=== PATIENT | female | born 1990 | race Caucasian/White ===

== ENCOUNTER 2019-03-25 09:19 | Emergency (ER) | payer MEDICAID, SELFPAY ==
[2019-03-25 09:32] VITALS: BP 98/70; PULSE 82; RESP 16; TEMP 36.4; O2SAT 99
--- NOTE | 2019-03-25 10:12 | ED.GENADULT ---
HPI - General Adult General Chief complaint: Urogenital-Female Stated complaint: Genital Itching Time Seen by Provider: 03/25/19 10:12 Source: patient and RN notes reviewed Mode of arrival: ambulatory Limitations: no limitations History of Present Illness HPI narrative: 29-year-old female presents with complaints of genital and rectal itching and burning sensation rash for greater than 2.5 months. Clobetasol propionate and Nystatin-Triamcinolone creams without relief. Denies new changes in personal hygiene products or laundry detergent. No new foods or medications. No swelling, bleeding, or drainage. No significant pelvic pain. No vaginal discharge.? No concerns for STDs. Exacerbating factors urinating.? Denies hematuria or vaginal bleeding. No flank pain. Denies nausea, vomiting, and abdominal pain. Denies fever, chills, headaches, weakness, fatigue, myalgia, facial swelling, or tongue swelling. Denies chest pain or dyspnea. Tolerating po intake well. Denies being , LMP 02/20/19. Some parts of this dictation were generated by voice recognition software and may contain typographical and/or grammatical inaccuracies. Related Data Home Medications Medication Instructions Recorded Confirmed clobetasol 1 applic TOPICAL HS 03/25/19 03/25/19 Allergies Allergy/AdvReac Type Severity Reaction Status Date / Time acetaminophen Allergy Mild RASH Verified 03/25/19 09:53 Review of Systems Review of Systems: Narrative: CONSTITUTIONAL: Denies fever, chills, sweats. EYES: Denies visual changes, redness, discharge. ENT: Denies rhinorrhea, congestion, sore throat, otalgia. CARDIOVASCULAR: Denies chest pain, palpitations, edema. RESPIRATORY: Denies dyspnea, wheezing, cough. GASTROINTESTINAL: Denies abdominal pain, nausea, vomiting, diarrhea. GENITOURINARY: Denies dysuria, hematuria, abnormal discharge SKIN: Complains of itching and burning sensation rash to genital and rectal area. Denies drainage. MUSCULOSKELETAL: Denies acute back pain, joint pain, or myalgia. NEUROLOGIC: Denies numbness or focal weakness. PSYCHIATRIC: Denies anxiety or depression. All other systems reviewed & are unremarkable except as noted in HPI and below. [facility] Past Medical History Medical History (Updated 03/26/19 @ 00:00 by Background Daemon) Anemia Surgical History Surgical History (Updated 03/25/19 @ 10:25 by BOONE Gregorio) No significant past surgical history Family History Family History (Updated 03/25/19 @ 10:25 by BOONE Gregorio) Father Hypertension Social History Social History (Updated 03/25/19 @ 10:26 by BOONE Gregorio) Smoking status: Current every day smoker Second hand tobacco smoke exposure: Yes Alcohol intake: never Substance use: never Living arrangements: with family Gender identity (if verbalized by the patient): Female Comments At time of signature, agree with nurse past medical, surgical, social, and family history. There is no relevant family history pertinent to the presenting complaint. Exam Narrative: Exam Narrative: GENERAL: This is a well-nourished, well-developed patient, in no apparent distress. Talking in full sentences without deficit and ambulate with steady gait without dyspnea. HEAD: normocephalic, atraumatic. EYES: PERRL. Sclera clear/white. Vision is grossly intact. THROAT: Mucous membranes moist, posterior pharynx clear. NECK: Neck supple, non-tender without lymphadenopathy, masses or thyromegaly. CARDIOVASCULAR: Regular rate and rhythm without murmurs, gallops, or rubs. RESPIRATORY: Clear to auscultation. Breath sounds equal bilaterally. No wheezes, rales, or rhonchi. GASTROINTESTINAL: Abdomen soft, non-tender, nondistended. Bowel sounds are active. No hepato-splenomegaly, or palpable masses. No guarding. SKIN: warm, red patch along the perineum area including the groin and butt with a well-marked border and clear central area. No tenderness.
== END 2019-03-25 10:43 | disposition home or self-care (01) ==
PROVIDERS: Emergency Provider Nurse Practitioner Family
DX: B35.6 Tinea cruris (principal); F17.200 Nicotine dependence, unspecified, uncomplicated
CPT/HCPCS: 99213; G0463

== ENCOUNTER 2019-07-19 16:59 | Emergency (ER) | payer OTHER, SELFPAY ==
[2019-07-19 17:19] VITALS: BP 106/74; PULSE 82; RESP 16; TEMP 36.9; O2SAT 99
--- NOTE | 2019-07-19 17:19 | ED.DENTAL ---
HPI - Dental/Oral General Chief complaint: Dental/Oral Stated complaint: Blisters in mouth Time Seen by Provider: 07/19/19 17:19 Source: patient and RN notes reviewed History of Present Illness HPI Narrative: Patient is a 29-year-old female that presents the urgent care with complaints of burning blisters/mouth sores. Patient states is been ongoing since February and she is seeing her PCP who treated her for herpetic lesions with acyclovir. Patient states that she took the medication 3 times a day for 1 week without any improvement and therefore stopped the medication. Patient states that her PCP did not see him in the office but rather today face time and video chat. Patient has not been checked for herpes and denies any vaginal lesions. Patient states that she spoke to her PCP regarding the no improvement with the medication and he set her up an appointment with the ENT on August 25. Patient states that it is just became intolerable and extremely painful. No other acute complaints. No acute distress noted. Patient read the plan of care. Related Data Allergies Allergy/AdvReac Type Severity Reaction Status Date / Time acetaminophen Allergy Mild RASH Verified 03/25/19 09:53 Review of Systems Review of Systems: Narrative: CONSTITUTIONAL: Denies fever, chills, or sweats. EYES: Denies visual changes, redness, or discharge. ENT: Denies rhinorrhea, congestion, sore throat, or otalgia. Reports of multiple mouth sores with burning CARDIOVASCULAR: Denies chest pain, palpitations, or edema. RESPIRATORY: Denies cough or dyspnea. GASTROINTESTINAL: Denies abdominal pain, nausea, vomiting, or diarrhea. GENITOURINARY: Denies dysuria or hematuria. SKIN: Denies rash or itching. MUSCULOSKELETAL: Denies back pain, joint pain, or myalgia. NEUROLOGIC: Denies headache, numbness, or weakness. All other systems reviewed are negative, except as documented in HPI. [facility] Past Medical History Medical History (Updated 07/19/19 @ 17:31 by BOONE Quinones) Anemia Surgical History Surgical History (Updated 03/25/19 @ 10:25 by BOONE Gregorio) No significant past surgical history Family History Family History (Updated 03/25/19 @ 10:25 by BOONE Gregorio) Father Hypertension Social History Social History (Updated 02/12/20 @ 10:26 by DAWSON Gregorio Smoking status: Current every day smoker Second hand tobacco smoke exposure: Yes Alcohol intake: never Substance use: never Gender identity (if verbalized by the patient): Female Comments At the time of my signature, I reviewed and agree with the nursing past medical, surgical, social, and family history. There is no relevant family history pertinent to the patient complaint. Exam Narrative: Exam Narrative: GENERAL: This is a well-nourished, well-developed patient, in no apparent distress. HEAD: normocephalic, atraumatic. EYES: PERRL. Sclera clear/white. Vision is grossly intact. EARS: External ears normal NOSE: External nose normal with no obvious nasal discharge, nares without redness, no rhinorrhea. THROAT: Mucous membranes moist, posterior pharynx clear. Erythemic raised blistering noted to the back of the tongue with blistering to the inside of the upper and lower mucosa NECK: Neck supple, non-tender without lymphadenopathy, masses or thyromegaly. SKIN: warm, intact with no suspicious lesions or rash, good texture and turgor. NEURO: awake, alert, and oriented to person, place and time. There were no obvious focal neurologic abnormalities. EXTREMITIES: No clubbing, cyanosis, or edema. Course Vital Signs Vital signs: Vital Signs Temperature 98.4 F 07/19/19 17:19 Pulse Rate 82 07/19/19 17:19 Respiratory Rate 16 07/19/19 17:19 Blood Pressure 106/74 07/19/19 17:19 Pulse Oximetry 99 07/19/19 17:19 Temperature 98.4 F 07/19/19 17:19 Pulse Rate 82 07/19/19 17:19 Respiratory Rate 16 07/19/19 17:19 Blood Pressure 106/74
== END 2019-07-19 17:42 | disposition home or self-care (01) ==
PROVIDERS: Emergency Provider Nurse Practitioner Family; PCP Emergency Medicine
DX: K12.1 Other forms of stomatitis (principal)
CPT/HCPCS: 99213; G0463

== ENCOUNTER 2021-05-13 11:51 | Emergency (ER) | payer OTHER, SELFPAY ==
--- NOTE | 2021-05-13 11:54 | ED.URI ---
HPI - URI/Sore Throat General Chief Complaint: Upper Respiratory Infection Stated Complaint: Sinus Infection Time Seen by Provider: 05/13/21 11:57 Source: patient, family, RN notes reviewed and old records reviewed Mode of arrival: ambulatory Limitations: no limitations History of Present Illness HPI Narrative: 31-year-old female presents to the [facility] with complaints of sinus congestion, right-sided frontal headache, right-sided ear pain. No throat pain. Denies chest pain or abdominal pain. Symptoms since Saturday, 5 days ago. MD elicited complaint: nasal congestion and sinus pain Related Data Allergies Allergy/AdvReac Type Severity Reaction Status Date / Time acetaminophen Allergy Mild RASH Verified 07/22/19 14:29 Review of Systems Review of Systems: All systems reviewed & are unremarkable except as noted in HPI and below Constitutional: Constitutional: Reports no additional constitutional complaints, Denies chills, Denies fever(s) and Denies headache(s) Eyes: Eyes: Reports no additional eye complaints ENT: Reports as per HPI, Denies vertigo, Denies dizziness, Denies headache(s), Reports nasal congestion and Denies sore throat Cardiovascular: Cardiovascular: Reports no additional cardiovascular complaints, Denies chest pain, Denies syncope, Denies rapid heart rate and Denies dyspnea Respiratory: Respiratory: Reports no additional respiratory complaints, Denies cough, Denies dyspnea and Denies wheezing Gastrointestinal: Gastrointestinal: Reports no additional gastrointestinal complaints, Denies abdominal pain, Denies diarrhea, Denies nausea and Denies vomiting Musculoskeletal: Musculoskeletal: Reports no additional musculoskeletal complaints and Denies numbness Integumentary/Breasts: Skin/Breast: Reports system reviewed and no additional complaints, except as docu Neurologic: Reports system reviewed and no additional complaints, except as documented, Denies vertigo, Denies dizziness, Denies syncope, Denies headache(s), Denies focal weakness and Denies numbness Psychiatric: Psychiatric: Reports no additional psychiatric complaints Allergic/Immunologic: Allergic/Immunologic: Reports no additional allergic/immunologic complaints and Denies wheezing PMFSH Past Medical History Medical History (Updated 05/13/21 @ 19:21 by Evelyn Taylor APRN) Anemia Surgical History Surgical History No significant past surgical history Family History Family History Father Hypertension Social History Social History Smoking status: Current every day smoker Second hand tobacco smoke exposure: Yes Alcohol intake: never Substance use: never Gender identity (if verbalized by the patient): Female Comments At the time of my signature, I reviewed and agree with the nursing past medical, surgical, social, and family history. There is no relevant family history pertinent to the patient complaint. Exam Const: General: cooperative, healthy appearing, no acute distress, well developed and alert Nutritional Appearance: well nourished Orientation/consciousness: patient oriented x3 Limitations: no limitations HENMT: Head: normal to inspection Ears: hearing grossly normal bilaterally, external ears normal, EAC's normal, mastoids normal and TM abnormal with fluid behind the TM bilateral; not erythematous and with no loss of landmarks General nose exam: Abnormal mucous membranes and turbinates present boggy bilateral and erythematous bilateral Face and sinus: normal facial exam Mouth: Yes Normal oral and palatal mucosa present Throat: uvula midline and postnasal drainage Eyes: Conjunctivae: conjunctivae normal Pupils: Equal, round and reactive pupils present Neck: Neck: normal visual inspection, no lymphadenopathy and no meningeal signs Chest: Chest palpation & inspec
[2021-05-13 12:00] VITALS: BP 118/66; PULSE 80; RESP 16; TEMP 37.6; O2SAT 100
[2021-05-15 11:34] LABS: SARS-CoV-2 RNA PCR Negative
== END 2021-05-13 12:41 | disposition home or self-care (01) ==
PROVIDERS: Emergency Provider Nurse Practitioner; PCP Family Medicine
DX: H65.93 Unspecified nonsuppurative otitis media, bilateral (principal); J32.9 Chronic sinusitis, unspecified; Z20.822 Contact with and (suspected) exposure to COVID-19; F17.200 Nicotine dependence, unspecified, uncomplicated
CPT/HCPCS: 87804; 99213; C9803; G0463; U0003; U0005

== ENCOUNTER 2022-02-14 14:51 | Emergency (ER) | payer OTHER, SELFPAY ==
--- NOTE | 2022-02-14 14:55 | ED.URI ---
HPI - URI/Sore Throat General Chief Complaint: Upper Respiratory Infection Stated Complaint: Sore Throat Time Seen by Provider: 02/14/22 14:58 Source: patient Mode of arrival: ambulatory Limitations: no limitations History of Present Illness HPI Narrative: Ginny is a 32-year-old female patient presenting to the clinic today with complaints of a sore throat x2 days. She reports she has had fever, headache, and body aches as well. MD elicited complaint: sore throat and nasal congestion Related Data Home Medications Medication Instructions Recorded Confirmed norethindrone 1 mg-ethin. 1 cap DAILY 02/14/22 02/14/22 estradiol 20 mcg (24)-iron 75 mg (4) capsule (Gemmily) Allergies Allergy/AdvReac Type Severity Reaction Status Date / Time acetaminophen Allergy Mild RASH Verified 02/14/22 15:01 Review of Systems Review of Systems: Pertinent positives per HPI. Patient denies any rash, visual changes, dizziness, cough, shortness of breath, chest pain, palpitations, nausea, vomiting, diarrhea, constipation, abdominal pain, or any urinary issues. PMFSH Past Medical History Medical History (Updated 02/14/22 @ 15:15 by Eren Pool APRN) Anemia Surgical History Surgical History No significant past surgical history Family History Family History Father Hypertension Social History Social History Smoking status: Current every day smoker Second hand tobacco smoke exposure: Yes Alcohol intake: never Substance use: never Gender identity (if verbalized by the patient): Female Comments At the time of my signature, I reviewed and agree with the nursing past medical, surgical, social, and family history. There is no relevant family history pertinent to the patient complaint. Exam Narrative: General: Well-developed, well nourished, in no apparent distress Head: Normocephalic, atraumatic Eyes: Pupils equally round and reactive to light bilaterally, EOM intact, sclera and conjunctive clear, no discharge, lids normal Ears: TMs intact and clear, ear canals clear, no drainage, grossly hearing normal. Nose: Nares patent, no discharge, no inflammation, no sinus tenderness. Mouth: Oral pharynx without lesions or masses, good dentition, MMM. Neck: Supple, trachea midline, no enlargement of anterior or posterior cervical nodes, no thyroid masses or goiter palpable. Cardio: Regular rate and rhythm, s1 and s2 normal, no murmur appreciated. Resp: Clear to auscultation bilaterally, no rhonchi, rales, wheezing or rubs Course Course Emergency Course: Portions of this record may have been created with voice recognition software. Level of Care: Express Care Visit Vital Signs Vital signs: Vital signs reviewed MDM - URI/Sore Throat MDM Narrative Medical decision making narrative: At the time of visit patient is resting comfortably on exam table. strep screen was positive in the clinic today. Prescription for amoxicillin was sent to the pharmacy and supportive measures were discussed with the patient she voiced understanding of discharge instructions and agrees to treatment plan Differential Diagnosis Differential diagnosis: Likely upper respiratory infection, otitis media, sinusitis, viral infection, bronchitis, influenza, pharyngitis and other Discharge Plan Discharge Clinical Impression: Strep throat Patient Disposition: Home, Self-Care Condition: Stable Instructions: Antibiotic Form, Strep Throat (ED) Additional Instructions: Strep screen was completed in the clinic today and was positive Take prescription medications only as prescribed- amoxicillin Change toothbrush in 24 hours after initiation antibiotics Increase fluids and stay well hydrated Tylenol/motrin for pain/fever Flonase and OTC antihistamines as
[2022-02-14 15:00] VITALS: BP 102/65; PULSE 79; RESP 16; TEMP 37.2; O2SAT 100
== END 2022-02-14 15:18 | disposition home or self-care (01) ==
PROVIDERS: Emergency Provider Nurse Practitioner Family; PCP Family Medicine
DX: J02.0 Streptococcal pharyngitis (principal); F17.200 Nicotine dependence, unspecified, uncomplicated
CPT/HCPCS: 87880; 99213; G0463